=== PATIENT | female | born 1965 | race Hispanic/Latino ===

== ENCOUNTER 2019-12-01 08:22 | Emergency (ER) | payer OTHER ==
[~2019-12-01] VITALS: Ht 165.1 cm; Wt 74.8 kg
--- OUTSIDE RECORDS SUMMARY | 2019-12-01 08:25 | XMS REPORT ---
Author Author [facility] Address Unknown Phone Unavailable Care Team Providers Care Obstetrics Scrub Nurse Name Role Phone Sirisha HARKINS Unavailable Unavailable Problems This patient has no known problems. Allergies, Adverse Reactions, Alerts This patient has no known allergies or adverse reactions. Medications This patient has no known medications. Encounters Start Date/Time End Date/Time Encounter Type Admission Type Attending [facility] Care Facility Care Department Encounter ID 2019-11-28 14:24:35 Outpatient [facility] [id number] 2019-09-30 07:44:00 2019-09-30 03:00:00 Inpatient E [facility] MED [id number] 2019-04-02 09:55:00 2019-04-02 09:55:00 Outpatient [facility] [id number] 2017-08-08 00:00:00 2017-08-08 00:00:00 Outpatient [facility] [id number] 2017-05-16 00:00:00 2017-05-16 00:00:00 Outpatient [facility] [id number] Results Test Description Test Time Test Comments Text Results Atomic Results Result Comments TISSUE EXAM 2019-10-16 16:20:00 Surgical Pathology Report Case: [id number] Authorizing Provider: Analia Harkins MD Collected: 10/15/2019 1358 Ord ering Location: [facility] Endoscopy Received: 10/15/2019 1535 Services Pathologist: Dee Dee Funez MD Specimens: A) - Small Bowel, NOS B) - Stomach, random A, SMALL BOWEL, BIOPSY - NO SIGNIFICANT PATHOLOGIC ABNORMALITYB. STOMACH, RANDOM BIOPSY: - MILD CHRONIC GASTRITIS WITH REACTIVE CHANGE - NO HELICOBACTER PYLORI MICROORGANISMS IDENTIFIEDCC/pl Signing Pathologist Direct Phone Line: [phone] signed by Dee Dee Funez MD on 10/16/2019 at 4:20 [id number] x2; [id number] pain A. Small bowel biopsy; B. Stomach biopsyA. Received in formalin labeled with the patient's name, accession number and "small bowel" are four pieces of barnard-white mucosal tissue measuring 0.5 x 0.5 x 0.2 cm in aggregate. The specimen is submitted in toto in cassette A1. B. Received in formalin labeled with the patient's name, accession number and "random stomach biopsy" are three pieces of barnard-white mucosal tissue measuring 0.5 x 0.4 x 0.2 cm in aggregate. The specimen is submitted in toto in cassette B1. NW/[place]. The small bowel biopsy shows multiple pieces of small bowel mucosa with intact villous architecture and lamina propria content. No acute inflammation, granuloma or dysplasia is present. B. The stomach random biopsy consists of three pieces of oxyntic mucosa with mild lymphoplasmacytic infiltrate in the lamina propria. No acute inflammation, intestinal metaplasia, dysplasia present. No Helicobacter pylori microorganism is identified by Warthin-starry stain. The interpretation of this case included the use of immunohistochemistry or special stains.Control Slides Examined: In-house known positive controls were evaluated along with the test tissue. These control slides run alongside of the patients sample show appropriate staining. Internal positive and negative controls when available are evaluated Immunohistochemistry technical testing was performed at [facility], Pathology Laboratory where it was developed and its performance characteristics were determined. It has not been cleared or approved by the U.S. Food and Drug Administration. The FDA has determined that such clearance or approval is not necessary. The test is used for clinical purposes. It should not be regarded as investigational or for research. This laboratory is certified under the Clinical Laboratory Improvement Amendments of 1988 (CLIA-88) as qualified to perform high complexity clinical laboratory testing.
--- OUTSIDE RECORDS SUMMARY | 2019-12-01 08:25 | XMS REPORT | Summary of Care ---
Author Author [facility] Organization [facility] Address Unknown Phone Unavailable Care Team Providers Care Manager Digital Name Role Phone Adri Robles MD PCP Unavailable Reason for Referral * Consult, Test & Treat (Routine) Referred By Contact Referred To Contact Status Reason Specialty Diagnoses / Procedures Edna Dasilva MD [address] [place] [address] [address] [place] [address] Pending Consult, Test, and Bariatrics Diagnoses Treat Status post bariatric surgery P rocedures [place] MED NUTR THER, 1ST, INDIV, EA 15 MIN * Consult, Test & Treat (Routine) Referred By Contact Referred To Contact Status Reason Specialty Diagnoses / Procedures Edna Dasilva MD [address] [place] [address] [address] [place] [address] [facility] [address] [place] [address], [address] [place] [address] Pending Consult, Test, and Gastroenterology Diagnoses Treat Status post bariatric surgery Constipation, unspecified constipation type P rocedures TN OFFICE OUTPATIENT NEW 30 MINUTES Reason for Visit * Reason Comments Post-op Follow-up post abdominal pain Encounter Details Care Team Description Date Type Department Edna Dasilva MD [address] [place] [address] [address] [place] [address] [phone] Post-op Follow-up (post abdominal pain) 05/22/[address] [facility] Bariatric Surgery [address] [place] [address]; [address] [place] [address] Allergies No Known Allergiesdocumented as of this encounter (statuses as of 05/22/2019) Medications End Date Status Medication Sig Dispensed Refills Start Date Active Secukinumab (COSENTYX) Inject into 0 150 MG/ML SOSY the skin. 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 documented as of this encounter Last Filed Vital Signs Reading Time Taken Comments Vital Sign 108/72 05/22/2019 11:46 AM CDT Blood Pressure 72 05/22/2019 11:46 AM CDT Pulse 36.8 C (98.2 F) 05/22/2019 11:46 AM CDT Temperature - - Respiratory Rate - - Oxygen Saturation - - Inhaled Oxygen Concentration 75.8 kg (167 lb) 05/22/2019 11:46 AM CDT Weight 165.1 cm (5' 5") 05/22/2019 11:46 AM CDT Height 27.79 05/22/2019 11:46 AM CDT Body Mass Index documented in this encounter Progress Notes * Mariano Lima CMA - 05/22/2019 12:23 PM CDT Patient was given her username for [employer] and was given instructions on how to reset password. * Analisa-Edna Mclean MD - 05/22/2019 11:20 AM CDT [facility] BARIATRIC SURGERY POST-BARIATRIC SURGERY PROGRESS NOTE DEPARTMENT OF SURGERY [address] [place] [address], [address] [place] [address] Encounter Date: 05/22/2019 Pt is s/p bariatric surgery. Reports she is doing well. She is tolerating her po st-bariatric diet. Denies any swallowing difficulties. Reports getting adequate protein and fluid intake. Has started eating sweets again with some weight regain. Reports constipation. Past Medical History: Diagnosis Date GERD (gastroesophageal reflux disease) Thyroid disorder Blood pressure 108/72, pulse 72, temperature 98.2 F (36.8 C), temperature so urce Oral, height 5' 5" (1.651 m), weight 167 lb (75.8 kg). Wt Readings from Last 3 Encounters: 05/22/19 167 lb (75.8 kg) 07/02/17 155 lb 8 oz (70.5 kg) 01/18/17 162 lb (73.5 kg) Body mass index is 27.79 kg/m. BMI 07/02/2017 05/22/2019 BODY MASS INDEX 25.88 27.79 Some recent data might be hidden NAD PERRLA RRR, no murmurs, rubs or gallops CTAB, no rhonchi, rales, or crackles ABDOMEN SOFT, NT/ND. No hernias noted Abdominal incisions C/D/I Encounter Diagnoses Name Primary? S/P laparoscopic sleeve gastrectomy 2016 Yes Status post bariatric surgery Constipation, unspecified constipation type Follow up in 1 year. Will check nutrition labs today. Will refer to GI for constipation. documented in this encounter Plan of Treatment Order Schedule Name Type Priority Associated Diagnoses Ordered: 05/22/2019 IRON+TIBC+%SAT Lab Routine Status post bariatric surgery Ordered: 05/22/2019 THYROID PANEL Lab Routine Status post bariatric surgery Ordered: 05/22/2019 VITAMIN B1 Lab Routine Status post bariatric surgery Ordered: 05/22/2019 VITAMIN B6 Lab Routine Status post bariatric surgery Ordered: 05/22/2019 VITAMIN B12 Lab Routine Status post bariatric surgery Ordered: 05/22/2019 VITAMIN A Lab Routine Status post bariatric surgery Ordered: 05/22/2019 VITAMIN D 25 HYDROXY Lab Routine Status post bariatric surgery Ordered: 05/22/2019 FOLATE Lab Routine Status post bariatric surgery Ordered: 05/22/2019 ZINC Lab Routine Status post bariatric surgery Ordered: 05/22/2019 COPPER - FREE Lab Routine Status post bariatric surgery Order Schedule Name Type Priority Associated Diagnoses Ordered: 05/22/2019 AMB REF TO Outpatient Routine Status post bariatric GASTROENTEROLOGY [facility] Referral surgery Constipation, unspecified constipation type Ordered: 05/22/2019 AMB REF TO BARIATRIC Outpatient Routine 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 [facility] Referral surgery Health Maintenance Due Date Last Done Comments COLON CANCER SCREENIN1966 COLONOSCOPY MAMMOGRAM ANNUAL 1966 TETANUS SHOT (ADULT) 1981 BMI FOLLOW UP PLAN 02/10/1984 HIV SCREENING 02/10/1984 CERVICAL CANCER SCREENING 1987 3 YEAR FOLLOW UP FLU VACCINE > 6 MONTHS 05/01/2019 documented as of this encounter Results Not on filedocumented in this encounter Visit Diagnoses Diagnosis S/P laparoscopic sleeve gastrectomy 2016 - Primary Status post bariatric surgery Bariatric surgery status Constipation, unspecified constipation type documented in this encounter Insurance Type Payer Benefit Subscriber ID Effective Phone Address Plan / Dates Group O [employer] Change [employer] xxxxxxxxxxxx 2017-P [id number] [place] [address] documented as of this encounter
--- OUTSIDE RECORDS SUMMARY | 2019-12-01 08:25 | XMS REPORT | Summary of Care ---
Author Author [facility] Organization [facility] Address Unknown Phone Unavailable Care Team Providers Care Grapple Crew Leader Name Role Phone Adri Robles MD PCP Unavailable Reason for Visit * Reason Comments Nutrition Counseling * Consult, Test & Treat (Routine) Referred By Contact Referred To Contact Status Reason Specialty Diagnoses / Procedures Hauser-Edna Mclean MD [address] [facility] [address] [address] 8[address] [place] [address] [place] [address] Authorization Consult, Test, and Bariatrics Diagnoses Not Needed Treat Status post bariatric surgery Status post bariatric surgery [Z98.84] P rocedures ID MED NUTR THER, 1ST, INDIV, EA 15 MIN Encounter Details Care Team Description Date Type Department Natalie Torres RD Nutrition Counseling 06/03/2019 Office Visit [facility] Bariatric Surgery [address]; [address] [place] [address] Allergies No Known Allergiesdocumented as of this encounter (statuses as of 06/03/2019) Medications End Date Status Medication Sig Dispensed Refills Start Date Active Secukinumab (COSENTYX) Inject into 0 150 MG/ML SOSY the skin. 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/04/2002 DISORDER, THYROID NOS 05/20/2002 documented as of this encounter (statuses as of 06/03/2019) Social History Date Tobacco Use Types Packs/Day [...] Signs Reading Time Taken Comments Vital Sign - - Blood Pressure - - Pulse - - Temperature - - Respiratory Rate - - Oxygen Saturation - - Inhaled Oxygen Concentration 76.1 kg (167 lb 12.8 oz) 06/03/2019 4:53 PM CDT Weight 165.1 cm (5' 5") 06/03/2019 4:53 PM CDT Height 27.92 06/03/2019 4:53 PM CDT Body Mass Index documented in this encounter Patient Instructions * Patient Instructions* Natalie Torres RD - 06/03/2019 3:44 PM CDT Metabolic and Bariatric Surgery [facility] [phone] PATIENT INSTRUCTIONS Watch the sweets! They will likely give you Dumping Syndrome. If you want jackie ething sweet, you should eat it right after a meal, not by itself You should be eating every 3-4 hours. Focus on eating protein. Your goal is 60-70 grams/day. Pack your food with you. Lunch 1-2 snacks--see handout on "low/no carbohydrate snacks" Avoid eating and drinking together--you should wait 30 minutes between food a nd liquid. Don't worry about stretching out your stomach. You only do this if you are fe eling uncomfortably full most of the time. Calcium Citrate 3559-7242 mg/day. 3 times/day--limit to 500mg at one time Please don't hesitate to call or email if you have any questions prior to your n ext appointment. Natalie Torres, MS,RD,LDN Senior Registered Dietitian [facility] Department of Surgery Email: [email or web address] If a medical problem occurs after hours please contact our office and have physi lucille supervisor sample preparation paged. documented in this encounter Progress Notes * Natalie Torres RD - 06/03/2019 4:54 PM CDT Nutrition Post-surgery note Freida Rockwell is a 54 y.o. female who had ESOPHAGOJEJUNSOTOMY for reflux and HH R in 2016. Subjective: (06/03/2019) Is concerned about gaining back too much weight. Went through depress ion not long ago and wasn't eating. Lowest weight was 145#. Prior to her depress ion and weight loss was at 155#. She feels like between 155-160# is where she fe els comfortable. Eats one meal/day. 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 Also packs snack bag of trail [employer] x (nuts, pumpkin seeds, craisins) with her. Will be hungry and "munch" on chips during. Feels like she is able to eat in the evening more than the morning. Worr ied about "stretching" out her pouch. Drinks with her meals to help her feel ful l (at those meals limites to about 1.5oz protein, 1/4 cup vegetables). C/o lack of energy and joint pain. Has psoriatic arthritis and on injections twice per mo nth but has joint pain between then and on oral med to help her (was doing this med twice daily and made her sick so she stopped taking it. Is afraid this will happen again if she takes--is on lower dosage. Objective: Ht Readings from Last 1 Encounters: 06/03/19 5' 5" (1.651 m) Wt Readings from Last 4 Encounters: 06/03/19 167 lb 12.8 oz (76.1 kg) 05/22/19 167 lb (75.8 kg) 07/02/17 155 lb 8 oz (70.5 kg) 01/18/17 162 lb (73.5 kg) Body mass index is 27.92 kg/m. Protein intake: <50 g/day Exercise: walking Vitamin and Mineral Supplementation MVI bid and VITAMIN B12 monthly IM. Not regularly taking Calcium citrate Notes: Explained to patient that watching the sweets and other carbohydrates in her diet will help decrease inflammation. Having symptoms of dumping syndrome after hard candy. Eating this for energy. Pt needs to be eating regularly throughout t he day--this will help with appetite control throughout the day and likely impro ve her energy. Protein goal is always at least 60 grams. Pt only eating once daily and if sh e does eat more meals will limit her intake by drinking fluids. Discussed portio n size at this point--at least 3oz protein with 1/2-1 cup side items. Will likel y always need to avoid drinking with meals for adequate intake and feeling satis fied for at least 3 hours. Advised her to pack her lunch and snacks as needed. Gave handout on low/no-ca rb snacks and stressed protein at each meal and snack. Gave verbal and written education. Plan: --see patient instructions for specific suggestions Will f/u in 4 months (October) Patient verbalizes understanding of plan and denies further nutrition related qu estions or concerns at this time. Dietitian will continue to monitor and remain s available to address future nutrition related questions and concerns. 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
--- OUTSIDE RECORDS SUMMARY | 2019-12-01 08:25 | XMS REPORT | Summary of Care ---
Author Author Diane Merritt M.A. Unknown Address Unknown Phone Unavailable Care Team Providers Care Oracle Adf Consultant Name Role Phone TED GAYLE DO Unavailable Unavailable Unavailable Unavailable Functional Status Name Dates Details Functional status health issues are not documented Status: Name Dates Details Cognitive status health issues are not documented Status: Problems Name Dates Details Obstructive sleep apnea (327.23, G47.33) Status: Active Tonsillar hypertrophy (474.11, J35.1) Status: Active Throat clearing (784.99, R68.89) Status: Active Postnasal drip (784.91, R09.82) Status: Active Medications Name Dates Details Cosentyx SOSY R.N. Active Allergies and Adverse Reactions Name Dates Details No Known Drug Allergies (Allergy) Status: Active Past Medical History Name Dates Details History of arthritis (V13.4, Z87.39) Status: Resolved History of chronic fatigue syndrome (V13.89, Z87.898) Status: Resolved History of depression (V11.8, Z86.59) Status: Resolved History of migraine (V12.49, Z86.69) Status: Resolved History of thyroid disease (V12.29, Z86.39) Status: Resolved Procedures Procedure Dates Details Polysomnography, sleep staging with 4+ parameters of sleep, attended by a technologist Date: 29-Nov-2018 Immunization Name Dates Details Immunizations not documented Family History Name Dates Details Family history of cardiac disorder (V17.49, Z82.49) Status: Active Social History Name Dates Details - Status: Name Dates Details Never smoker Vital Signs Date Test Result Details [id number] BP Systolic 113 mm[Hg] Status: Comments: Location: LUE; Position: Sitting BP Diastolic 75 mm[Hg] Status: Comments: Location: LUE; Position: Sitting Height 66 in Status: Weight 166 lb Status: Body Mass Index Calculated 26.79 kg/m2 Status: Body Surface Area Calculated 1.85 m2 Status: Temperature 97.7 f Status: Comments: Method: Oral Heart Rate 64 /min Status: Results Date Description Value Details Results not documented Plan of Care Name Dates Details Planned Observations Planned Goals not documented Instructions Name Dates Details Instructions not documented Encounters Appointment; RODY WRAY M.D. Encounter Diagnosis: Problem not documented On: 29-Nov-2018 10:00
[2019-12-01] MEDS ORDERED: TETRACAINE HCL 0.5% OPTH SOLN 4 ML BTL OP ONE (08:30)
[2019-12-01] MEDS ORDERED: FLUORESCEIN SOD(OPTH) 1 MG STRP OP ONE (08:30)
[2019-12-01] MEDS ORDERED: FLUORESCEIN SOD(OPTH) 1 MG STRP ONE (08:36)
[2019-12-01] MEDS ORDERED: TETRACAINE HCL 0.5% OPTH SOLN 4 ML BTL ONE (08:36)
== END 2019-12-01 08:47 | disposition home or self-care (01) ==
LOC: ER 08:22
DX: H57.11 Ocular pain, right eye (principal); H10.11 Acute atopic conjunctivitis, right eye
CPT/HCPCS: 99281

== ENCOUNTER 2021-08-20 17:48 | Emergency (ER) | payer OTHER ==
[~2021-08-20] VITALS: Ht 165.1 cm; Wt 74.8 kg
[2021-08-20] MEDS ORDERED: TETANUS/DIPHTHERIA TOX ADULT 0.5 ML SYR IM ONE (18:30)
[2021-08-20] MEDS ORDERED: LIDOCAINE HCL 1% LOCAL INJ 20 ML VIAL INJ ONE (18:30)
[2021-08-20 18:37] VITALS: BP 144/76
[2021-08-20] MEDS ORDERED: TETANUS/DIPHTHERIA TOX ADULT 0.5 ML SYR ONE (18:44)
== END 2021-08-20 18:38 | disposition home or self-care (01) ==
LOC: FSED 18:05
DX: S61.304A Unspecified open wound of right ring finger with damage to nail, initial encounter (principal); X50.0XXA Overexertion from strenuous movement or load, initial encounter; Y93.K1 Activity, walking an animal; Y92.488 Other paved roadways as the place of occurrence of the external cause; L40.9 Psoriasis, unspecified
CPT/HCPCS: 90714; 99283

== ENCOUNTER → 2021-08-23 | Outpatient (CLI) | payer OTHER | LOC: US 13:44 | PROVIDERS: ATTEND Emergency Medicine | DX: Z12.31 Encounter for screening mammogram for malignant neoplasm of breast (principal); Z90.710 Acquired absence of both cervix and uterus | CPT/HCPCS: 76830; 76856; 77067 ==

== ENCOUNTER → 2021-12-27 | Outpatient (CLI) | payer OTHER | LOC: MRI 10:35 | PROVIDERS: ATTEND Emergency Medicine | DX: M25.511 Pain in right shoulder (principal); R51.9 Headache, unspecified; W19.XXXA Unspecified fall, initial encounter | CPT/HCPCS: 70450 ==

== ENCOUNTER → 2022-02-22 | Outpatient (CLI) | payer OTHER | LOC: DX 10:05 | PROVIDERS: ATTEND Emergency Medicine | DX: M81.8 Other osteoporosis without current pathological fracture (principal) | CPT/HCPCS: 77080 ==

== ENCOUNTER → 2022-04-18 | Outpatient (CLI) | payer OTHER | LOC: CT 15:49 | PROVIDERS: ATTEND Emergency Medicine | DX: J01.90 Acute sinusitis, unspecified (principal) | CPT/HCPCS: 70486 ==

== ENCOUNTER → 2022-06-07 | Outpatient (CLI) | payer OTHER | LOC: US 11:44 | PROVIDERS: ATTEND Emergency Medicine | DX: E04.1 Nontoxic single thyroid nodule (principal) | CPT/HCPCS: 76536 ==